=== PATIENT | female | born 1935 | race Caucasian/White ===

== ENCOUNTER → 2020-11-01 | Outpatient (CLI) | payer OTHER ==
[~2020-11-01] MED LIST: ANTIVERT 25MG T25 MG PO; APRISO0.375 GM PO; ARICEPT5 MG PO; CARDIZEM CD240 MG PO; CEFUROXIME500 MG PO; CELEXA20 MG PO; COZAAR100 MG PO; DIABETA 5 MG TAB5 MG PO; ECOTRIN81 MG PO; IPRAT-ALBUT 0.5-3 ML INH; IPRATROPIU0.2 MG/1 M INH; LASIX40 MG PO; LOPRESSOR 25 MG25 MG PO; MACROBID 100 M100 MG PO; NAMENDA10 MG PO; PRADAXA75 MG PO; PRAVACHOL40 MG PO; PREDNISONE20 MG PO; PROTONIX40 MG PO; PROVENTIL HFA6.7 GM INH; SYNTHROID125 MCG PO
[2020-11-01 17:40] LABS: HEMOGLOBIN 13.8 gm/dl (12.3-15.3); RED BLOOD COUNT 4.59 M/UL (4.00-5.10); WHITE BLOOD COUNT 9.9 K/UL (4.5-11.0)
== END ==
LOC: LAB 16:52
PROVIDERS: Family Medicine
DX: E11.65 Type 2 diabetes mellitus with hyperglycemia (principal); R06.02 Shortness of breath; E11.29 Type 2 diabetes mellitus with other diabetic kidney complication; E03.8 Other specified hypothyroidism; D51.9 Vitamin B12 deficiency anemia, unspecified; I10 Essential (primary) hypertension
CPT/HCPCS: 36415; 80053; 82043; 82607; 82746; 83036; 83880; 84443; 84681; 85027

== ENCOUNTER 2021-03-25 19:41 | Emergency (ER) | payer OTHER ==
[2021-03-25] MEDS ORDERED: HYDROCODON-ACE1 EAC4 PO (21:49)
== END 2021-03-25 22:30 | disposition home or self-care (01) ==
LOC: ER1 19:41
DX: S52.502A Unspecified fracture of the lower end of left radius, initial encounter for closed fracture (principal); S52.602A Unspecified fracture of lower end of left ulna, initial encounter for closed fracture; S62.521A Displaced fracture of distal phalanx of right thumb, initial encounter for closed fracture; I25.10 Atherosclerotic heart disease of native coronary artery without angina pectoris; E11.9 Type 2 diabetes mellitus without complications; E78.00 Pure hypercholesterolemia, unspecified; Z23 Encounter for immunization; W19.XXXA Unspecified fall, initial encounter; Y92.009 Unspecified place in unspecified non-institutional (private) residence as the place of occurrence of the external cause
CPT/HCPCS: 12001; 29125; 70450; 73090; 73110; 73130; 90471; 90715; 99284